=== PATIENT | male | born 1945 | race Caucasian/White ===

== ENCOUNTER 2017-12-03 13:41 | Observation (INO) | payer OTHER ==
--- NOTE | 2017-12-03 13:59 | EDPHY ---
H & P Stated Complaint: Cut to Right big toe 3 weeks ago, looks "infected". Time Seen by Provider: 12/03/17 13:58 HPI/ROS: HPI: This is a 72-year-old male who presents with Chief Complaint: Concerns for infection of right big toe that was cut 3 weeks ago Location: Right big toe Quality: Infection Duration: 3 week Signs and Symptoms: No bleeding, no radiation, no numbness, no weakness, no tingling, no incontinence, no decreased range of motion, no swelling, no pain, no fever Timing: Worsening Severity: Moderate to severe Context: Patient has a history of type 2 diabetes mellitus noticed today by his and infection in his right medial great toe. Patient believes that maybe 3 weeks ago while he was at the [place] [facility], he may have stubbed his toe and cut it on the new anti slipped runners that they put in a male locker room. Patient does not remember injuring his toe at that time but noticed another male head cut his toe. Denies significant peripheral neuropathy. Reports tetanus up-to-date. No fevers. Has noticed some drainage over the last few days. Denies decreased range of motion. Ate breakfast this morning around 830 and then 3 cookies around 12 30 pm. Modifying Factors: None Comment: ROS: see HPI Constitutional: No fever, no chills, no weight loss Eyes: No blurred vision Respiratory: No shortness of breath, no cough Cardiovascular: No chest pain Gastrointestinal: No nausea, no vomiting no diarrhea Genitourinary: No dysuria Extremities: No myalgias Neurologic: No weakness, no numbness Skin: No rashes Hematologic: No bruising, no bleeding MEDICAL/SURGICAL/SOCIAL HISTORY: Medical history: DM2. Sciatica. Right rotator cuff injury. Surgical history: Denies Social history: . Retired. CONSTITUTIONAL: Pleasant and cooperative elderly white male, awake and alert, no obvious distress HEENT: Atraumatic and normocephalic, PERRL, EOMI. Tympanic membranes clear. Oropharynx clear, no exudate and moist pink mucosa. Airway patent. No lymphadenopathy. No meningismus. Cardiovascular: Normal S1/S2, mild tachycardia, regular rhythm, without murmur rub or gallop. PULMONARY/CHEST: Symmetrical and nontender. Clear to auscultation bilaterally. Good air movement. No accessory muscle usage. ABDOMEN: Soft, nondistended, nontender, no rebound, no guarding, no peritoneal signs, no masses or organomegaly. No CVAT. EXTREMITIES: 2/2 pulses, strength 5/5, right great toe stage II ulceration with necrotic area; area of fluctuance noted; flexion and extension intact. No nail involvement. no deformities, no clubbing, no cyanosis or edema. NEUROLOGICAL: no focal neuro deficits. GCS 15. SKIN: Warm and dry, no erythema. no rash. Good capillary refill. Source: Patient, Family Exam Limitations: No limitations - Personal History Current Tetanus Diphtheria and Acellular Pertussis (TDAP): Yes - Medical/Surgical History Hx Asthma: No Hx Chronic Respiratory Disease: No Hx Diabetes: Yes Hx Cardiac Disease: No Hx Renal Disease: No Hx Cirrhosis: No Hx Alcoholism: No Hx HIV/AIDS: No Hx Splenectomy or Spleen Trauma: No Other PMH: DM2. Sciatica. R rotater cuff injury. - Social History Smoking Status: Never smoked Constitutional: Initial Vital Signs Temperature (C) 36.7 C 12/03/17 13:48 Heart Rate 102 H 12/03/17 13:48 Respiratory Rate 18 12/03/17 13:48 Blood Pressure 158/90 H 12/03/17 13:48 O2 Sat (%) 92 12/03/17 13:48 O2 Delivery Mode Room Air Allergies/Adverse Reactions: No Known Allergies Allergy (Unverified 12/03/17 13:53) Home Medications: Medication Instructions Recorded Aspirin 12/03/17 Januvia 25 MG (*) 12/03/17 Metformin HCl 12/03/17 Medical Decision Making - Diagnostics Imaging Results: Imaging Impressions Foot X-Ray 12/03/17 14:08 Impression: Soft tissue swelling with plantar ulceration at the level of the base of the great toe distal phalanx, with no periostitis or marginal erosion appreciated. Nonetheless, if there is further clinical concern regarding an associated osteomyelitis, contrast-enhanced MR imaging could be considered. ED Course/Re-evaluation: Labs and x-ray ordered Patient will need debridement. No signs of neurovascular compromise/tenting of skin/compartment syndrome/ extremities and joints examined above and below area of concern and are neurovascularly intact. Right foot x-ray my read shows soft tissue swelling; degenerative changes noted. Labs reviewed; no leukocytosis; serum glucose noted to be 253 ED decision to consult General surgery Dr. Ruby who kindly agrees to consult on patient and provide I&D. Will admit to the hospitalist service. Spoke with Dr. Thornton who kindly agrees to admit patient. This patient was seen under the supervision of my secondary supervising physician. I evaluated care for this patient independently. Discussed this patient with Dr. Nguyen who did not see the patient. Differential Diagnosis: Differential diagnosis includes but is not limited to cellulitis, abscess, osteomyelitis. - Data Points Laboratory Results: Laboratory Results 12/03/17 14:20 12/03/17 14:20 12/03/17 12/03/17 14:20 14:20 WBC 6.43 10^3/uL 10^3/uL (3.80-9.50) RBC 4.27 10^6/uL L 10^6/uL (4.40-6.38) Hgb 13.6 g/dL L g/dL (13.7-17.5) Hct 41.0 % % (40.0-51.0) MCV 96.0 fL fL (81.5-99.8) MCH 31.9 pg pg (27.9-34.1) MCHC 33.2 g/dL g/dL (32.4-36.7) RDW 12.0 % % (11.5-15.2) Plt Count 140 10^3/uL L 10^3/uL (150-400) MPV 9.9 fL fL (8.7-11.7) Neut % (Auto) 63.6 % % (39.3-74.2) Lymph % (Auto) 25.7 % % (15.0-45.0) Sac % (Auto) 7.5 % % (4.5-13.0) Eos % (Auto) 2.2 % % (0.6-7.6) Baso % (Auto) 0.5 % % (0.3-1.7) Nucleat RBC Rel Count 0.0 % % (0.0-0.2) Absolute Neuts (auto) 4.10 10^3/uL 10^3/uL (1.70-6.50) Absolute Lymphs (auto) 1.65 10^3/uL 10^3/uL (1.00-3.00) Absolute Monos (auto) 0.48 10^3/uL 10^3/uL (0.30-0.80) Absolute Eos (auto) 0.14 10^3/uL 10^3/uL (0.03-0.40) Absolute Basos (auto) 0.03 10^3/uL 10^3/uL (0.02-0.10) Absolute Nucleated RBC 0.00 10^3/uL 10^3/uL (0-0.01) Immature Gran % 0.5 % % (0.0-1.1) Immature Gran # 0.03 10^3/uL 10^3/uL (0.00-0.10) Sodium 139 mEq/L mEq/L (135-145) Potassium 4.6 mEq/L mEq/L (3.5-5.2) Chloride 105 mEq/L mEq/L (97-110) Carbon Dioxide 17 mEq/l L mEq/l (22-31) Anion Gap 17 mEq/L H mEq/L (8-16) BUN 27 mg/dL H mg/dL (7-23) Creatinine 1.0 mg/dL mg/dL (0.7-1.3) Estimated GFR > 60 Glucose 253 mg/dL H mg/dL (70-100) Calcium 8.4 mg/dL L mg/dL (8.5-10.4) Departure - Departure Disposition: [facility] Inpatient Acute Clinical Impression: Skin ulcer of right great toe with necrosis of muscle Condition: Fair
[2017-12-03 14:26] LABS: PLATELET COUNT 140 10^3/uL (150-400)
[2017-12-03] MEDS ORDERED: ACETAMINOPHEN 325 MG TAB PO PRN (15:39)
[2017-12-03] MEDS ORDERED: ONDANSETRON DISINTEGRATING 4 MG TAB PO PRN (15:39)
[2017-12-03] MEDS ORDERED: ONDANSETRON 4 MG/2 ML VIAL IVP PRN ×2 (15:39→21:11)
[2017-12-03] MEDS ORDERED: oxyCODONE IR 5 MG TAB PO PRN (15:39)
[2017-12-03] MEDS ORDERED: D50W 25 GM/50 ML SYR IVP PRN (16:17)
[2017-12-03] MEDS: NS 1,000 ML IV SCH (16:38)
--- NOTE | 2017-12-03 17:11 | GCON ---
[f rep st] CONSULTATION DATE OF CONSULTATION: 12/03/2017 CHIEF COMPLAINT: Right toe pain. HISTORY OF PRESENT ILLNESS: This is a 72-year-old diabetic male who presents to the emergency depart ment stating that, approximately 3 weeks ago, he scraped his right great toe on a non slip mat at the [facility]. He did notice the wound at that time. He had continued to follow it. The wound c ontinued to not heal but not get any worse. He denies having any pain throughout this process, up un til today when he looked at the toe and noticed that it was clearly getting worse, stating that the d orsum of the toe was now red and that the area of concern had still not healed and likely progressed. He denies having any fevers or chills. He describes the pain as starting just today. It is sharp, worse with pressure. It is nonradiating and 6/10 at its worst intensity. He denies having any syst emic complaints including fevers or chills and, other than the wound and the minimal amount of pain i n the area, has no complaints. PAST MEDICAL HISTORY: Type 2 diabetes, sciatica, hypertension. PAST SURGICAL HISTORY: Eye history as a child. No previous I and D or abdominal surgeries. FAMILY HISTORY: Significant for diabetes and hypertension. No significant issues with anesthesia. SOCIAL HISTORY: Retired. Denies illicit drug use. REVIEW OF SYSTEMS: A full 10-point review was performed. PHYSICAL EXAMINATION: VITAL SIGNS: Temp 36.7, blood pressure 158/90, heart rate 102, and he is 92% on room air. CONSTITUTIONAL: He is in no apparent distress. He appears comfortable. EYES: His pu pils are equal, round, and reactive to light and accommodation. His extraocular movements are intact . EARS, NOSE, MOUTH, THROAT: He has good dentition. His mucous membranes are moist. His hearing i s normal. His ears appear normal. CARDIOVASCULAR: He has a regular rate and rhythm without any mur murs. RESPIRATORY: He has no respiratory distress, rales, or rhonchi. GI: He has normoactive charmaine l sounds. ABDOMEN: Soft, nondistended, nontender. SKIN: Warm, normal color, no rashes. There is a 3 x 2 area on the lateral side of the right great toe extending approximately 1 cm deep. There is no visible bone. There is an approximately 1 cm2 area of necrotic tissue inferiorly with surrounding edema and erythema. MUSCULOSKELETAL: Full strength. No tenderness. Normal joint range of motion. NEUROLOGIC: Alert and oriented x3. Cranial nerves 2-12 are intact. No weakness. No numbness. P SYCH: He is interacting appropriately. He is not anxious. He is not encephalopathic. His thought process is linear. LYMPH/HEME/IMMUNOLOGIC: There is no cervical, groin, or supraclavicular lymphade nopathy appreciated. LABORATORY DATA: White blood cell count is normal at 6, H and H 13 and 41. Chemistry is largely unr emarkable, with the exception of elevated glucose at 253. IMAGING: Includes a plain film of the right foot, the images of which were personally reviewed, whic h do show some soft tissue swelling around the right great toe. I do not appreciate any bony involve ment. ASSESSMENT AND PLAN: A 72-year-old diabetic male with right great toe infection. I discussed my cli nical findings with the patient. I am concerned the fact that he has had 3 weeks that the infection i s likely bigger than what we see. My recommendation is debridement. Given the fact that he has inta ct sensation to the remainder of his foot, I feel that the best place for this is in the operating ro om with gentle sedation. He is in agreement. I have subsequently consented him after explaining the risks, benefits, and alternatives to right great toe debridement. /[id number]/MODL
--- NOTE | 2017-12-03 17:15 | PDGENHP ---
History and Physical - Chief Complaint Acute toe ulcer - History of Present Illness Primary care provider: [facility] in [place] HPI: 72-year-old male presenting with acute ulceration located on his right great toe characterized as a non painful, skin ulceration with onset of symptoms approximately 3 weeks ago and duration persistent and worsening thereafter. The patient was alerted to the ulceration by his who saw the skin becoming necrotic along the medial aspect and it began emanating a foul smell several days ago. The patient asserts that his sensation in his bilateral lower extremities is intact and symmetric bilaterally, and this area has not been painful. History Information - Allergies/Home Medication List Allergies/Adverse Reactions: No Known Allergies Allergy (Verified 12/03/17 16:23) Home Medications: Aspirin EC [Aspirin EC 81 mg (*)] 81 mg PO DAILY 12/03/17 [Last Taken 12/03/17] Lisinopril [Lisinopril] 5 mg PO DAILY 12/03/17 [Last Taken 12/03/17] metFORMIN HCL [Metformin HCl] 500 mg PO BIDMEAL 12/03/17 [Last Taken 12/03/17 08 :00] sitaGLIPtin PHOSPHATE [Januvia 100 MG (*)] 100 mg PO DAILY 12/03/17 [Last Taken 12/03/17] I have personally reviewed and updated: family history, medical history, social history, surgical history - Past Medical History diabetes type 2 (Most recent hemoglobin A1c 9.2%) Additional medical history: Sciatica and neuropathy beginning approximately 5-6 months ago. Rotator cuff injury - Surgical History Reports: no pertinent surgical hx - Family History Additional family history: Second-degree relative with diabetes and fluctuating A1cs, no diabetic issues in either the parents - Social History Smoking Status: Former smoker Alcohol Use: Rarely Drug Use: None Additional social history: Independent in his ADLs comma resides with white Review of Systems Review of Systems: ROS: 10pt was reviewed & negative except for what was stated in HPI & below Skin: Reports: other (Necrotic lesion along his right toe) Physical Exam Physical Exam: Temp Pulse Resp BP Pulse Ox 36.7 C 80 16 100/68 94 12/03/17 15:53 12/03/17 15:53 12/03/17 15:53 12/03/17 15:53 12/03/17 15:53 Constitutional: no apparent distress, appears nourished, not in pain Eyes: PERRL, anicteric sclera, EOMI Ears, Nose, Mouth, Throat: moist mucous membranes, hearing normal, ears appear normal, no oral mucosal ulcers Cardiovascular: regular rate and rhythym, no murmur, rub, or gallop, No edema Peripheral Pulses: 2+: dorsalis-pedis (R), dorsalis-pedis (L) Respiratory: no respiratory distress, no rales or rhonchi, clear to auscultation Gastrointestinal: normoactive bowel sounds, soft, non-tender abdomen, no palpable masses Skin: other (Necrotic lesion consuming the medial half of his distal right great toe with some eschar, sloughing tissue) Neurologic: AAOx3, sensation intact bilaterally, No weakness (Motor strength bilaterally 5/5) Psychiatric: interacting appropriately, not anxious, not encephalopathic, thought process linear Lab Data & Imaging Review 12/03/17 14:20 12/03/17 14:20 WBC 6.43 10^3/uL (3.80-9.50) 12/03/17 14:20 RBC 4.27 10^6/uL (4.40-6.38) L 12/03/17 14:20 Hgb 13.6 g/dL (13.7-17.5) L 12/03/17 14:20 Hct 41.0 % (40.0-51.0) 12/03/17 14:20 MCV 96.0 fL (81.5-99.8) 12/03/17 14:20 MCH 31.9 pg (27.9-34.1) 12/03/17 14:20 MCHC 33.2 g/dL (32.4-36.7) 12/03/17 14:20 RDW 12.0 % (11.5-15.2) 12/03/17 14:20 Plt Count 140 10^3/uL (150-400) L 12/03/17 14:20 MPV 9.9 fL (8.7-11.7) 12/03/17 14:20 Neut % (Auto) 63.6 % (39.3-74.2) 12/03/17 14:20 Lymph % (Auto) 25.7 % (15.0-45.0) 12/03/17 14:20 [facility] % (Auto) 7.5 % (4.5-13.0) 12/03/17 14:20 Eos % (Auto) 2.2 % (0.6-7.6) 12/03/17 14:20 Baso % (Auto) 0.5 % (0.3-1.7) 12/03/17 14:20 Nucleat RBC Rel Count 0.0 % (0.0-0.2) 12/03/17 14:20 Absolute Neuts (auto) 4.10 10^3/uL (1.70-6.50) 12/03/17 14:20 Absolute Lymphs (auto) 1.65 10^3/uL (1.00-3.00) 12/03/17 14:20 Absolute Monos (auto) 0.48 10^3/uL (0.30-0.80) 12/03/17 14:20 Absolute Eos (auto) 0.14 10^3/uL (0.03-0.40) 12/03/17 14:20 Absolute Basos (auto) 0.03 10^3/uL (0.02-0.10) 12/03/17 14:20 Absolute Nucleated RBC 0.00 10^3/uL (0-0.01) 12/03/17 14:20 Immature Gran % 0.5 % (0.0-1.1) 12/03/17 14:20 Immature Gran # 0.03 10^3/uL (0.00-0.10) 12/03/17 14:20 Sodium 139 mEq/L (135-145) 12/03/17 14:20 Potassium 4.6 mEq/L (3.5-5.2) 12/03/17 14:20 Chloride 105 mEq/L (97-110) 12/03/17 14:20 Carbon Dioxide 17 mEq/l (22-31) L 12/03/17 14:20 Anion Gap 17 mEq/L (8-16) H 12/03/17 14:20 BUN 27 mg/dL (7-23) H 12/03/17 14:20 Creatinine 1.0 mg/dL (0.7-1.3) 12/03/17 14:20 Estimated GFR > 60 12/03/17 14:20 Glucose 253 mg/dL (70-100) H 12/03/17 14:20 Calcium 8.4 mg/dL (8.5-10.4) L 12/03/17 14:20 Visualized and Interpreted imaging results: Yes Interpretation: X-ray demonstrating some soft tissue edema, no gas, plantar ulceration along the right great toe without over osteomyelitis Assessment & Plan Assessment: 72-year-old male presenting with acute right great toe diabetic ulceration Plan: 1. Diabetic ulceration. Acute, new problem this provider, further workup indicated. This wound has evolved over the past 3 weeks, has potential for underlying osteo, as well as soft tissue infection, but does not have significant cellulitis extending up the foot -the area certainly warrants antibiotics, but given his current hemodynamic stability, will get him to the operating room, debride, send tissue for culture , and then initiate IV vancomycin tonight, to be de-escalated tomorrow depending on culture results and surgical findings -discussed with Dr. Ruby, will take the patient to the operating room tonight and give the appropriate cultures, then antibiotics will start 2. Diabetes mellitus type 2 with hyperglycemia. Check hemoglobin A1c, placed on insulin sliding scale, initiate home metformin Januvia tomorrow postprocedurally, check lipid panel to determine whether statin therapy recommended 3. Suspected neuropathy. Patient has no objective neuropathic findings on exam , continue to monitor, recommend considering gabapentin if any suspicion of neuropathy evolves Diet. NPO currently, IV fluids, diabetic thereafter Prophylaxis. Moderate risk patient, hold pharm given surgery, SCDs Code. Full per patient, is MD POA Disposition. Anticipated discharge is 12/04, pending surgical evaluation as outlined above.
[2017-12-03] MEDS: INSULIN REGULAR HUMAN 100 UNIT/ML UNIT SC SCH ×2 (17:47→22:19)
[2017-12-03] MEDS ORDERED: LR 1,000 ML IV ONE (20:06)
[2017-12-03] MEDS ORDERED: fentaNYL 100 MCG/2 ML INJ ONE (20:50)
[2017-12-03] MEDS ORDERED: PROPOFOL 200 MG/20 ML VIAL ONE (20:50)
[2017-12-03] MEDS ORDERED: LIDOCAINE 2% 5 ML SDV ONE (20:51)
[2017-12-03] MEDS ORDERED: ONDANSETRON 4 MG/2 ML VIAL ONE (20:51)
[2017-12-03] MEDS ORDERED: PHENYLEPHRINE HCL 100 MCG/ML SYR ONE (21:02)
[2017-12-03] MEDS ORDERED: ACETAMINOPHEN 500 MG TAB PO PRN (21:11)
[2017-12-03] MEDS ORDERED: PHENYLEPHRINE HCL 100 MCG/ML SYR IVP PRN (21:11)
[2017-12-03] MEDS ORDERED: fentaNYL 100 MCG/2 ML INJ IVP PRN (21:11)
[2017-12-03] MEDS ORDERED: NALOXONE HCL 0.4 MG/ML INJ IVP PRN (21:11)
[2017-12-03] MEDS ORDERED: epHEDrine SULFATE 10 MG/ML SYR IVP PRN (21:11)
[2017-12-03] MEDS ORDERED: HYDROCODONE/APAP 5/325 TAB PO PRN (21:11)
[2017-12-03] MEDS ORDERED: PROMETHAZINE HCL 25 MG/ML INJ IVP PRN (21:11)
[2017-12-03] MEDS ORDERED: NS 500 ML IV PRN (21:11)
--- NOTE | 2017-12-03 21:11 | PDANEPAE ---
ANE Past Medical History - Cardiovascular History Hx Hypertension: Yes Hx Arrhythmias: No Hx Chest Pain: No Hx Coronary Artery / Peripheral Vascular Disease: No Hx CHF / Valvular Disease: No Hx Palpitations: No - Pulmonary History Hx COPD: No Hx Asthma/Reactive Airway Disease: No Hx Recent Upper Respiratory Infection: No Hx Oxygen in Use at Home: No Hx Sleep Apnea: No Sleep Apnea Screening Result - Last Documented: Negative - Endocrine History Hx Diabetes: Yes Hypothyroid: Yes Hyperthyroid: No Obesity: no - Chronic Pain History Chronic Pain: No ANE Review of Systems Review of Systems: - Exercise capacity METS (RN): 4 METS ANE Patient History - Allergies Allergies/Adverse Reactions: No Known Allergies Allergy (Verified 12/03/17 16:23) - Home Medications Home Medications: Aspirin EC [Aspirin EC 81 mg (*)] 81 mg PO DAILY 12/03/17 [Last Taken 12/03/17] Lisinopril [Lisinopril] 5 mg PO DAILY 12/03/17 [Last Taken 12/03/17] metFORMIN HCL [Metformin HCl] 500 mg PO BIDMEAL 12/03/17 [Last Taken 12/03/17 08 :00] sitaGLIPtin PHOSPHATE [Januvia 100 MG (*)] 100 mg PO DAILY 12/03/17 [Last Taken 12/03/17] - NPO status NPO Since - Liquids (Date): 12/03/17 NPO Since - Liquids (Time): 12:00 NPO Since - Solids (Date): 12/03/17 NPO Since - Solids (Time): 12:00 - Anes Hx Anes Hx: no prior problems - Smoking Hx Smoking Status: Former smoker Marijuana use: No - Alcohol Use Alcohol Use: Rarely - Family Anes Hx Family Anes Hx: neg - N/A ANE Labs/Vital Signs - Labs Result Diagrams: 12/03/17 14:20 12/03/17 14:20 - Vital Signs Blood Pressure: 127/77 Heart Rate: 76 Respiratory Rate: 18 O2 Sat (%): 100 Height: 180.34 cm Weight: 92.98 kg ANE Physical Exam - Airway Neck exam: FROM Mallampati Score: Class 3 Mouth exam: normal dental/mouth exam - Pulmonary Pulmonary: no respiratory distress, no rales or rhonchi, clear to auscultation - Cardiovascular Cardiovascular: regular rate and rhythym, no murmur, rub, or gallop - ASA Status ASA Status: III ANE Anesthesia Plan Anesthesia Plan: GA w LMA Total IV Anesthesia: Yes
[2017-12-03] MEDS: VANCOMYCIN 1.5 GM in D5W 250 ML IV SCH (21:22)
--- NOTE | 2017-12-03 21:36 | POSTOPPROG ---
Post Op Note Date of Operation: 12/03/17 Surgeon: Charli Ruby Anesthesiologist: Therese Anesthesia: GET(General Endotracheal) Pre-op Diagnosis: Infected R great toe Post-op Diagnosis: same Procedure: R great toe debridement Findings: did not extend to bone Inf/Abcess present in the surg proc area at time of surgery?: Yes Depth: Superfical (Skin SQ) EBL: Minimal Specimen(s): tissue culture
--- NOTE | 2017-12-03 23:17 | GOP ---
[f rep st] OPERATIVE REPORT DATE OF OPERATION: 12/03/2017 SURGEON: Charli Ruby MD DISPATCH ASSOCIATE: None. ANESTHESIA: General endotracheal. ANESTHESIOLOGIST: January Saleh DO. PREOPERATIVE DIAGNOSIS: Infected right great toe. POSTOPERATIVE DIAGNOSIS: Infected right great toe. PROCEDURE PERFORMED: Debridement of right great toe down to soft tissue not extending to bone. FINDINGS: Saucerization of right great toe down to the subcutaneous tissue. The infected tissue did not extend to bone. Cultures were appropriately taken. SPECIMENS: Tissue for culture. ESTIMATED BLOOD LOSS: 10 cc. DESCRIPTION OF PROCEDURE: The patient was greeted in the preoperative suite. Once again, risks, vanessa efits, and alternatives were discussed. Consent was signed. He was then brought back to the operati ve suite, placed on the OR table in supine position. After all anesthesia machines including SCDs we re functioning, [employer] time-out was performed. The patient's right lower leg was then prepped and draped in typical sterile fashion. I commenced the procedure by gently debriding th e tissue down to good bleeding underlying tissue which did not extend to the bone. I did send a port ion of this for culture. All the tissue was bleeding appropriately. I saw no other necrotic areas. Hemostasis was achieved with a combination of gentle pressure and electrocautery. Once this was don e, it was appropriately dressed and was hemostatic. The patient was then extubated in the operative suite and taken to the PACU in satisfactory condition. All counts were reported as correct x2. SURGEON: Charli Ruby MD. DRAINS: None. /[id number]/MODL
--- NOTE | 2017-12-04 00:37 | POSTANESTH ---
Post Anesthetic Evaluation Cardiovascular Status: Normal, Stable Respiratory Status: Normal, Stable Level of Consciousness/Mental Status: Can Participate in Eval Pain Control: Adequate, Prn Tx Ordered Nausea/Vomiting Control: Adequate, Prn Tx Ordered Complications Possibly Related to Anesthesia: None Noted
[2017-12-04] MEDS: NS 1,000 ML IV SCH (06:24)
[2017-12-04] MEDS ORDERED: metFORMIN HCL 500 MG TAB PO SCH (08:00)
[2017-12-04 08:10] VITALS: BP 116/69
[2017-12-04] MEDS ORDERED: LISINOPRIL 5 MG TAB PO SCH (09:00)
[2017-12-04] MEDS ORDERED: ASPIRIN EC 81 MG TAB PO SCH (09:00)
[2017-12-04] MEDS: INSULIN REGULAR HUMAN 100 UNIT/ML UNIT SC SCH ×2 (10:05→12:13)
--- NOTE | 2017-12-04 10:16 | ASMTCASEMG ---
Living Arrangements What is your living Answers: With Spouse arrangement? Who do you live with? Type Of Residence What kind of residence do Answers: House you live in? Discharge Plan Comments Coordination Status Comments Notes: Patient is a 72yo male who was admitted for a diabetic ulceration which requires a trip to the OR for debridement and then IV ABX. PT eval ordered. D/C plan TBD. CM will follow. Date Signed: 12/04/2017 10:16 AM Electronically Signed By:Amna Waggoner LCSW
[2017-12-04] MEDS: VANCOMYCIN 1.5 GM in D5W 250 ML IV SCH (10:43)
--- NOTE | 2017-12-04 10:45 | PDDCSUM ---
Discharge Summary Discharge Summary: Dates of service 12/03-12/04/17 Consultations: general surgery Procedures performed: debridement of diabetic toe ulcer Hospital course by problem: 1. Diabetic ulceration. wound had evolved over weeks prior to admission, without any pain. Now s/p surgical debridement and on surgical eval there was no involvement of bone. Plan to hold off on any antibiotics, follow up culture results. Patient will f/u with surgery in 1 week to see how this is progression. 2. Diabetes mellitus type 2 with hyperglycemia. glucose has been well controlled on home regimen which will be continued. Lipid panel checked for secondary prevention, LDL of 34 so will not start statin at this time. 3. Suspected neuropathy. Patient has no objective neuropathic findings on exam , recommend f/u with PCP for monofilament testing given lack of sxs with wound on presentation DC home f/u with Dr. Ruby in 1 week, f/u with PCP Items for follow up: --f/u appearance of toe --f/u pending cultures from surgical wound > 35 min spent in dc more than half in coordination of care
== END 2017-12-04 13:39 | disposition home or self-care (01) ==
LOC: F3E 16:13
PROVIDERS: ADMIT Internal Medicine; ATTEND Student in an Organized Health Care Education/Training Program
PROC: 0JDQ0ZZ Extraction of Right Foot Subcutaneous Tissue and Fascia, Open Approach (ICD-10-PCS; principal; 2017-12-03 20:00)
DX: E11.621 Type 2 diabetes mellitus with foot ulcer (principal); L97.511 Non-pressure chronic ulcer of other part of right foot limited to breakdown of skin; I10 Essential (primary) hypertension; L03.031 Cellulitis of right toe; B95.61 Methicillin susceptible Staphylococcus aureus infection as the cause of diseases classified elsewhere; B95.4 Other streptococcus as the cause of diseases classified elsewhere
CPT/HCPCS: 11042; 73630; 97161; G0378; J1815; J2370; J2405; J2704; J3010; J3370